=== PATIENT | female | born 1985 | race Caucasian/White ===

== ENCOUNTER 2019-02-02 21:22 | Emergency (ER) | payer OTHER ==
[~2019-02-02] VITALS: Ht 175.3 cm; Wt 108.9 kg
[~2019-02-02 21:22] MED LIST: ACET325 PO; ALBU90OI INH; ASPI325 PO; Apap-Butalbita1 EACH PO; BCPs; BIRTH CONTROL; CLAR250 PO; CYCL10 PO; Ceftin500 MG PO; Citalopram HBr10 MG PO; DOCU100 PO; DOXY100 PO; ENOX60I SC; HINGED KNEE BRACE TOP; HYDACE5 PO; HYDGUAL120 PO; IBUP400 PO; IBUP800 PO; MEDR150I IM; METPRE4DP; METPRE4DP PO; Mobic15 MG PO; OXYACE5T PO; Omeprazole20 M1 PO; PRED10 PO; PREN-16 PO; PRODEXEL PO; TOPI50 PO; Ventolin/Prove6.7 GM; WARF10 PO; WARF5 PO; Zofran Odt4 MG SL
[2019-02-02 22:03] LABS: BASOPHILS ABSOLUTE AUTO 0.03 K/mm3 (0.00-0.23); BASOPHILS PERCENT AUTO 0 % (0-2); EOSINOPHILS ABSOLUTE AUTO 0.09 K/mm3 (0.00-0.68); EOSINOPHILS PERCENT AUTO 1 % (0-6); Hematocrit 44.6 % (33.0-51.0); Hemoglobin 15.1 g/dL (11.5-16.0); IMMATURE GRAN ABSOLUTE AUTO 0.03 K/mm3 (0.00-0.10); IMMATURE GRAN PERCENT AUTO 0 % (0-1); LYMPHOCYTES ABSOLUTE AUTO 3.24 K/mm3 (0.84-5.20); LYMPHOCYTES PERCENT AUTO 40 % (21-46); MONOCYTES ABSOLUTE AUTO 0.39 K/mm3 (0.16-1.47); MONOCYTES PERCENT AUTO 5 % (4-13); Mean Corpuscular HGB 32.1 pg (26.0-34.0); Mean Corpuscular HGB Conc 33.9 g/dL (31.5-36.5); Mean Corpuscular Volume 95 fL (80-100); Mean Platelet Volume 9.6 fL (9.1-12.4); NEUTROPHILS ABSOLUTE AUTO 4.23 K/mm3 (1.96-9.15); NEUTROPHILS PERCENT AUTO 53 % (41-73); Platelet Count 311 K/mm3 (150-400); RDW Coefficient Variation 12.4 % (11.7-14.2); RDW Standard Deviation 43.8 fL (35.1-46.3); White Blood Cell Count 8.01 K/mm3 (4.00-11.30)
[2019-02-02 22:26] LABS: Alanine Aminotransfer (ALT/SGP 23 U/L (12-78); Albumin, Blood 4.1 g/dL (3.4-5.0); Albumin/Globulin Ratio 1.3 (0.8-1.8); Alk Phos 73 U/L (50-136); Anion Gap 5 mmol/L (6-16); Aspartate Aminotrans (AST/SGOT 10 U/L (12-37); Bilirubin, Total 0.2 mg/dL (0.1-1.0); Blood Urea Nitrogen 11 mg/dL (8-24); Bun/Creatinine Ratio 15.3 (12.0-20.0); CO2, Blood 25 mmol/L (21-32); Calcium, Blood 8.8 mg/dL (8.5-10.1); Chloride, Blood 111 mmol/L (98-108); Creatinine, Blood 0.72 mg/dL (0.40-1.00); Globulin, Blood 3.2 g/dL (2.2-4.0); Glomerular Filtration Rate >60 (60-); Glucose, Blood 94 mg/dL (70-99); Potassium, Blood 3.7 mmol/L (3.5-5.5); Sodium, Blood 141 mmol/L (136-145); Total Protein, Blood 7.3 g/dL (6.4-8.2)
[2019-02-03] MEDS ORDERED: AMLO10 PO (00:30)
[2019-02-03] MEDS ORDERED: Diclofenac Sodi50 MG PO (00:30)
== END 2019-02-03 01:42 | disposition home or self-care (01) ==
LOC: ER 21:22
PROVIDERS: Emergency Medicine
DX: R51 Headache (principal); R11.0 Nausea; Z86.73 Personal history of transient ischemic attack (TIA), and cerebral infarction without residual deficits; Z79.899 Other long term (current) drug therapy; Z79.82 Long term (current) use of aspirin
CPT/HCPCS: 80053; 85025; 96374; 96375; 99283; J1885; J2765; J7030

== ENCOUNTER 2019-09-12 09:33 | Day surgery (SDC) | payer OTHER ==
[~2019-09-12] VITALS: Ht 172.7 cm; Wt 107.7 kg
[~2019-09-12 09:33] MED LIST changes: +AMLO10 PO; +Diclofenac Sodi50 MG PO; +TOPI25 PO
[2019-09-12] MEDS ORDERED: DICL75ER PO (10:18)
--- NOTE | 2019-09-12 10:26 | NUR ---
09/12/19 1026 Shameka Matias 1ST IV MISSED. TMG
[2019-09-12] MEDS ORDERED: ZOFRAN4 MG PO (10:44)
--- NOTE | 2019-09-12 13:37 | NUR ---
09/12/19 1337 Leslie Gonzales PT SBA TRANSFER INTO RECLINER WITHOUT DIFFICULTY. VSS AND SIPPING COFFEE. PT RATES PAIN IN RIGHT KNEE 10/19. PT DENIES PAIN MEDICATION INTERVENTION AT THIS TIME. WILL CONTINUE TO MONITER.
== END 2019-09-12 14:22 | disposition home or self-care (01) ==
LOC: ORSCSDS 09:33
PROVIDERS: Orthopaedic Surgery
PROC: 0MQN4ZZ Repair Right Knee Bursa and Ligament, Percutaneous Endoscopic Approach (ICD-10-PCS; principal; 2019-09-12 11:00)
PROC: 0SBC4ZZ Excision of Right Knee Joint, Percutaneous Endoscopic Approach (ICD-10-PCS; principal; 2019-09-12 11:00)
DX: S83.511A Sprain of anterior cruciate ligament of right knee, initial encounter (principal); S83.249A Other tear of medial meniscus, current injury, unspecified knee, initial encounter; I10 Essential (primary) hypertension; F17.210 Nicotine dependence, cigarettes, uncomplicated; K21.9 Gastro-esophageal reflux disease without esophagitis; Z86.73 Personal history of transient ischemic attack (TIA), and cerebral infarction without residual deficits; E66.01 Morbid (severe) obesity due to excess calories; Z68.36 Body mass index [BMI] 36.0-36.9, adult; Z79.899 Other long term (current) drug therapy
CPT/HCPCS: A9270-GY; C1713; J0171; J0690; J1100; J2250; J2405; J2704; J2795; J3010; J7120

== ENCOUNTER → 2019-11-23 | Outpatient (CLI) | payer OTHER ==
[~2019-11-23] MED LIST changes: +DICL75ER PO; +ZOFRAN4 MG PO
== END | disposition home or self-care (01) ==
LOC: LAB SHORT 07-28 13:47 → LAB 13:47 → LAB SHORT 13:47 → LAB FUT 07-27 11:00
DX: K21.9 Gastro-esophageal reflux disease without esophagitis (principal)
CPT/HCPCS: 87338